=== PATIENT | male | born 1995 | race Caucasian/White ===

== ENCOUNTER 2020-10-01 19:33 | Emergency (ER) | payer SELFPAY ==
[~2020-10-01] VITALS: Ht 175.3 cm; Wt 56.8 kg
[2020-10-01 19:41] VITALS: TEMP 98.3
[2020-10-01 21:08] LABS: BASO # 0.1 (0.0-0.2); BASO % 0.5 % (0.0-2.0); EOS # 0.2 (0.0-0.7); EOS % 1.4 % (0-4.0); GRAN # 9.4 (1.4-6.5); HEMATOCRIT 42.7 % (42.0-52.0); HEMOGLOBIN 15.7 g/dl (13.5-18.0); LYMPH # 1.5 (1.2-3.4); LYMPH % 12.4 % (20.0-51.0); MEAN CELL VOLUME 86 fl (80.0-100.0); MEAN CORPUSCULAR HEMOGLOBIN 32 pg (27.0-31.0); MEAN CORPUSCULAR HGB CONC 37 g/dl (33.0-37.0); MEAN PLATELET VOLUME 9.5 fl (7.4-10.4); MONO % 8.4 % (1.7-9.3); PLATELET COUNT 323 K/mm3 (130-400); RED BLOOD COUNT 4.99 M/mm3 (4.20-5.60)
[2020-10-01 21:16] LABS: ALBUMIN 4.6 gm/dL (3.5-5.0); BILIRUBIN,TOTAL 0.6 mg/dL (0.0-1.0); CALCIUM 9.5 mg/dL (8.4-10.2); CREATININE, serum 0.83 (0.66-1.25); POTASSIUM 3.4 mmol/L (3.4-5.0); TOTAL PROTEIN 8.4 gm/dL (6.4-8.2)
[2020-10-01 21:29] LABS: C-REACTIVE PROTEIN 1.8 mg/dL (0.0-0.9)
[2020-10-01] MEDS ORDERED: AMOXICILLIN 8751 TAB PO (22:12)
[2020-10-01 22:30] VITALS: BP 109/64; PULSE 96
== END 2020-10-01 22:32 | disposition home or self-care (01) ==
LOC: COL.ER 19:33
PROVIDERS: Emergency Medicine
DX: J36 Peritonsillar abscess (principal)
CPT/HCPCS: J0696; J1100; J7030; Q9967

== ENCOUNTER 2020-10-13 11:11 | Emergency (ER) | payer SELFPAY ==
[~2020-10-13] VITALS: Ht 175.3 cm; Wt 54.5 kg
[~2020-10-13 11:11] MED LIST: AMOXICILLIN 8751 TAB PO
[2020-10-13 11:19] VITALS: TEMP 97.8
[2020-10-13 11:41] LABS: BASO # 0.1 (0.0-0.2); BASO % 1.1 % (0.0-2.0); EOS # 0.2 (0.0-0.7); EOS % 3.9 % (0-4.0); GRAN # 2.4 (1.4-6.5); GRAN % 51.2 % (42.2-75.2); HEMATOCRIT 44.5 % (42.0-52.0); LYMPH # 1.7 (1.2-3.4); LYMPH % 36.5 % (20.0-51.0); MEAN CELL VOLUME 88 fl (80.0-100.0); MEAN CORPUSCULAR HEMOGLOBIN 32 pg (27.0-31.0); MEAN CORPUSCULAR HGB CONC 36 g/dl (33.0-37.0); MEAN PLATELET VOLUME 9.9 fl (7.4-10.4); MONO # 0.3 (0.1-0.6); MONO % 7.3 % (1.7-9.3); PLATELET COUNT 329 K/mm3 (130-400); RED BLOOD COUNT 5.04 M/mm3 (4.20-5.60); REDCELL DISTRIBUTION WIDTH-CV 12.4 % (11.5-14.5)
[2020-10-13 13:20] VITALS: BP 115/79; PULSE 60
== END 2020-10-13 13:20 | disposition left against medical advice (07) ==
LOC: COL.ER 11:11
PROVIDERS: Emergency Medicine
DX: R07.89 Other chest pain (principal); R06.02 Shortness of breath; R42 Dizziness and giddiness; D72.819 Decreased white blood cell count, unspecified
CPT/HCPCS: J2060